=== PATIENT | female | born 1975 | race Caucasian/White ===

== ENCOUNTER → 2024-05-23 | Outpatient (CLI) | payer BC, SELFPAY ==
[2024-05-23 15:43] LABS: Cardiac Risk Estimate 3.7 RATIO (3.7-5.6); Cholesterol 182 mg/dL (132-200); HDL Cholesterol 49 mg/dL (40-60); LDL Cholesterol,Calculated 116 mg/dL (0-130); Triglycerides 83 mg/dL (30-150)
[2024-05-31 13:49] LABS: Immunoglobulin A 131 mg/dL (47-310); Immunoglobulin G 932 mg/dL (600-1640)
[2024-06-02 06:59] LABS: Immunoglobulin M 297 mg/dL (50-300)
== END | disposition home or self-care (01) ==
LOC: COPL 13:48
PROVIDERS: PCP Physician Assistant; Referring Provider Physician Assistant; Visit Provider Physician Assistant
DX: E72.09 Other disorders of amino-acid transport (principal); E78.9 Disorder of lipoprotein metabolism, unspecified
CPT/HCPCS: 36415; 80061; 82784

== ENCOUNTER 2025-02-25 20:55 | Emergency (ER) | payer BC, SELFPAY ==
[2025-02-25 20:56] VITALS: BMI 22.3
[2025-02-25 21:35] VITALS: BP 117/69; PULSE 93; RESP 16; TEMP 37.1; O2SAT 98
--- NOTE | 2025-02-25 21:57 | EDNOTE_ITS ---
ED Animal Bite RME/HPI General Chief Complaint: Animal Bite Stated Complaint: DOG BITE TO LEFT FOURTH FINGER Time Seen by Provider: 02/25/25 21:40 Arrival date/time: 02/25/25 20:55 49F with asthma, endometriosis, and psych presents to ED with L ring finger dog bite from family dog. Patient has not had a tetanus shot in the past 5 years. Limitations: no limitations Related Data Home Medications ?Medication ?Instructions ?Recorded ?Confirmed budesonide-formoterol HFA 160 2 puff inhalation BID 04/17/19 mcg-4.5 mcg/actuation aerosol inhaler (Symbicort) montelukast 10 mg tablet 10 mg PO QDAY 04/17/1904/17 Previous Rx's ?Medication ?Instructions ?Recorded epinephrine 0.3 mg/0.3 mL 0.3 mg (0.3 mL) IM Q10-15M P RN 07/22/18 injection, auto-injector (EpiPen anaphylaxis #2 ea 2-Jarad) albuterol sulfate 2.5 mg/3 mL 2.5 mg (3 mL) inhalation Q4H PRN 08/25/18 (0.083 %) solution for nebulization shortness of breat h or wheezing #180 mL amoxicillin 875 mg-potassium 1 tab PO BID 10 days #20 tabs 02/25/25 clavulanate 125 mg tablet Allergies Allergy/AdvReac Type Severity Reaction Status Date / Time No Known Allergies Allergy Verified 02/25/25 20:56 Review of Systems Review of Systems Systems Reviewed: All systems reviewed, normal except as documented Integumentary/Breasts Skin/Breast: Reports as per HPI and Reports skin pain Past Medical History Past Medical History NEUROLOGIC: Positive Neurological Disorders and Migraine CARDIAC: Negative Cardiac Disorders or Congestive Heart Failure RESPIRATORY: Positive Chronic Obstructive Pulmonary Disease (COPD) and Asthma GASTROINTESTINAL: Positive Gastrointestinal Disorders and Colitis GENITOURINARY: Negative Renal Disease REPRODUCTIVE: Positive Endometriosis MUSCULOSKELETAL: Positive Musculoskeletal Disorders and Rheumatoid Arthritis ENDOCRINE: Negative Diabetes Mellitus Type 1 or Diabetes Mellitus Type 2 HEMATOLOGIC: Negative Sickle Cell Disease PSYCHO/SOCIAL: Positive Depression and Anxiety Surgical History SURGICAL: Positive Abdominal Surgery and Hysterectomy Social History SMOKING STATUS: Never smoker SUBSTANCE USE: does not use ED Exam General Limitations: Present no limitations General appearance: Present alert, in no apparent distress and anxious Head Head exam: Present atraumatic Neck Neck exam: Present normal inspection, full ROM and trachea midline Chest Chest inspection: Present normal inspection and symmetric chest wall rise Extremities Exam Extremities exam: Present full ROM Expanded Upper Extremity Exam Hand exam: Present full ROM and laceration (L ring finger 2 cm) Neurological Exam Neurological exam: Present alert and oriented X3 Psychiatric Psychiatric exam: Present normal affect and normal mood Skin Skin exam: Present warm, dry, intact and normal color Course Quality Measures none Orders Category Date Time Status Wound Care NOW Care 02/25/25 21:42 Active Amoxicillin/Pot Clav 875 [Augmentin 875] Med 02/25/25 21:41 Discontinued 1 tab PO X1 ONE TET,DIP/PERT AC (Adult)-Tdap [Boostrix Adult (Tdap) Med 02/25/25 21:41 Discontinued Vacc] 0.5 ml IMI .ONCE ONE Vital Signs Vital signs: Vital Signs Temperature 98.7 F 02/25/25 21:35 Pulse Rate 93 02/25/25 21:35 Respiratory Rate 16 02/25/25 21:35 Blood Pressure 117/69 02/25/25 21:35 Pulse Oximetry (%) 98 02/25/25 21:35 Oxygen Delivery Method Room Air 02/25/25 21:35 O2 at 98% on RA and WNLs Animal Bite MDM Narrative MDM Narrative:: 49F with asthma, endometriosis, and psych presents to ED with L ring finger dog bite from family dog. Patient has not had a tetanus shot in the past 5 years. Physical exam reveals 2 cm lac on palmar L ring finger finger. ROM intact. Patient is afebrile, alert, but anxious. Wound cleaned/irrigated and partially closed with 2 stitches given size of laceration. Given ABX and tdap. Counseled to removed stitches in about 7-10 days. Patient data External records reviewed:: [facility] previous records Clinical information provided by:: patient Social determinants that could affect healthcare access:: none Patient has the following chronic illnesses:: none How is presenting disease/condition affected by chronic disease/condition?: no chronic disease Evaluation data The following diagnostics were reviewed and interpreted by me:: other (specify) (none) Lab and/or radiology exams considered but not ordered:: not ordered Interpretation Summary: n/a Medications / Prescriptions Medications or Prescriptions considered but not ordered:: ordered Medication administrations:: Medication Administration History Discontinued Medications Amoxicillin/Clavulanate Potassium (Amoxicillin/Pot Clav 875 Tablet) 1 tab PO X1 ONE Stop: 02/25/25 21:42 Last Admin: 02/25/25 22:03 Dose: 1 tab Documented By: RHIANNON Diphtheria/Tetanus/Acell Pertussis (Diphth,Pertuss(Acell),Tet Vac 0.5 Ml Syr- Adult) 0.5 ml IMi .ONCE ONE Stop: 02/25/25 21:42 Last Admin: 02/25/25 22:02 Dose: 0.5 ml Documented By: RHIANNON above Consultations Consultation(s) initiated? (list below): No Diagnosis Differential diagnosis animal bite: bite by animal, dog bite and rabies contact Most likely diagnosis given after review of the tests above:: dog bite Admission Indicated Admission indicated?: not indicated Admission Request Was there a request for admission?: No Disposition Plan Disposition Plan: Discharge Discharge Attestation Discharge Attestation: The patient and all family members were given an opportunity to ask questions and understood the discharge instructions. Discharge instructions specifically effects, indications for sooner follow up or return to the emergency department, and the expected course of current diagnosis. Patient condition: Stable Discharge Plan Plan Patient Disposition: HOME (Self Care) Discharge Disposition comment: Stable Prescriptions/Referrals Prescriptions/Med Rec: New amoxicillin-pot clavulanate 875-125 mg tablet 1 tab PO BID 10 Days Qty: 20 0RF No Action epinephrine [EpiPen 2-Jarad] 0.3 mg/0.3 mL auto-injector 0.3 mg IM Q10-15M PRN (Reason: anaphylaxis) Qty: 2 0RF Rx Instructions: until response albuterol sulfate 2.5 mg /3 mL (0.083 %) solution for nebulization 2.5 mg INH Q4H PRN (Reason: shortness of breath or wheezing) Qty: 180 0RF montelukast 10 mg tablet 10 mg PO QDAY Symbicort 160-4.5 mcg/actuation HFA aerosol inhaler 2 puff inhalation BID Problem List Clinical Impression: Dog bite Patient/Caregiver Discharge Instructions Education Materials: ED Dog Bite Additional Instructions: Please follow-up with PCP within 24-48 hours and return immediately if symptoms worsen. Print Language: Estonian Stand Alone Forms: Patient Portal Info Letter PACO/WILMA Supervising Physician PACO/WILMA Supervising Physician: Dr. Owens
[2025-02-25] MEDS: DIPHTH,PERTUSS(ACELL),TET VAC 0.5 ML SYR- ADULT IMi (22:02)
[2025-02-25] MEDS: AMOXICILLIN/POT CLAV 875 TABLET 1 TAB PO (22:03)
--- NOTE | 2025-02-25 23:13 | PC.NURSE ---
wound cleaned irrigated and dressing applied.
== END 2025-02-26 01:26 | disposition home or self-care (01) ==
LOC: SERX 23:25
PROVIDERS: Emergency Provider Emergency Medicine
DX: S61.255A Open bite of left ring finger without damage to nail, initial encounter (principal); J45.909 Unspecified asthma, uncomplicated; W54.0XXA Bitten by dog, initial encounter; Z79.51 Long term (current) use of inhaled steroids; Z90.710 Acquired absence of both cervix and uterus
CPT/HCPCS: 90471; 90715; 99283; A9270